=== PATIENT | female | born 1965 | race Caucasian/White ===

== ENCOUNTER 2016-05-19 07:40 | Emergency (ER) | payer OTHER, SELFPAY ==
[2016-05-19] MEDS ORDERED: Ketorolac Tromethamine 30 MG/ML VIAL ONE (08:09)
[2016-05-19] MEDS ORDERED: Ondansetron HCl/PF 4 MG/2 ML Vial ONE (08:09)
[2016-05-19] MEDS ORDERED: Sodium Chloride 0.9% 1,000 ML ONE (08:09)
[2016-05-19 08:23] LABS: Bilirubin Negative (Negative); Blood, Urine Moderate (Negative); Glucose, Urine (Dipstick) Negative (Negative); Ketone, Urine Negative (Negative); Nitrite Negative (Negative); Protein, Urine (Dipstick) 30 mg/dL (Neg-Trace); Urobilinogen 0.2 mg/dL (0.2-1.0)
[2016-05-19 08:24] LABS: #Basophils 0.1 thou/uL (0.0-0.2); #Eosinphils 0.1 thou/uL (0.0-0.7); #Lymphocytes 1.5 thou/uL (1.20-3.40); #Monocytes 0.3 thou/uL (0.11-0.59); #Neutrophils 6.4 thou/uL (1.40-6.50); %Basophils 0.7 % (0.0-1.0); %Eosinophils 1.6 % (0.0-10.0); %Lymphocytes 17.7 % (21.0-51.0); %Monocytes 3.4 % (0.0-10.0); Hematocrit 41.5 % (36.0-47.0); Mean Platelet Volume 6.2 fL (7.4-10.4); Red Blood Cell (RBC) Count 4.82 mill/uL (4.20-5.40); White Blood Cell (WBC) Count 8.3 thou/uL (4.8-10.8)
[2016-05-19 08:25] LABS: Bacteria/HPF None Seen HPF (None Seen); RBC/HPF 0-3 HPF (0-3); Squamous Epithelial 0-3 HPF (0-3); WBC/HPF 0-3 HPF (0-3)
[2016-05-19 08:30] LABS: ALT (SGPT) 21 U/L (0-55); AST (SGOT) 22 U/L (5-34); Alkaline Phosphatase 106 U/L (40-150); Anion Gap 16 mmol/L (10-20); BUN (Urea Nitrogen) 23 mg/dL (7.0-18.7); Bilirubin, Total 0.4 mg/dL (0.2-1.2); Calc. Creatinine Clearance 0 mL/min (70-130); Calcium 9.4 mg/dL (7.8-10.44); Carbon Dioxide 21 mmol/L (22-29); Chloride 108 mmol/L (98-107); Estimated GFR-MDRD 72; Globulin 3.1 g/dL (2.4-3.5); Protein, Total 7.6 g/dL (6.0-8.3)
[2016-05-19] MEDS ORDERED: Levofloxacin 500 mg/D5W 100 ml Premix Bag ONE (09:14)
--- NOTE | 2016-05-19 09:21 | CT ---
CT OF THE ABDOMEN AND PELVIS WITH IV CONTRAST: Date: 05/19/16 INDICATION: Left lower quadrant abdominal pain since 0500 hours. FINDINGS: There is a 5.6 mm calculus involving the inferior pole of the left kidney. There is slight prominenc e of the left renal pelvis with periureteral inflammatory stranding involving the proximal left uret er. No jose a hydronephrosis is evident. There is a 3.6 mm stone at the left UVJ. Additionally, there is wall thickening with pericolonic inflammatory stranding and scattered diverti cula involving the proximal sigmoid colon and distal descending colon suspicious for diverticulitis. There is a normal appendix in the right lower quadrant. No drainable fluid collection is evident. Unopacified liver, spleen, pancreas, adrenal glands, and right kidney are unremarkable. No free flui d is noted. No acute osseous abnormality is evident. IMPRESSION: 1. Left UVJ calculus without appreciable hydronephrosis. There is some mild periureteral inflammato ry stranding involving the proximal aspect of the left ureter with slight prominence of the left derek al pelvis. 2. Left nephrolithiasis. 3. Wall thickening with scattered diverticula and pericolonic inflammatory stranding involving the proximal sigmoid colon and distal descending colon, suspicious for noncomplicated acute appendicitis . No drainable fluid collection is evident. POS: RINA
--- NOTE | 2016-05-19 10:37 | ERRECORD ---
[facility] EMERGENCY RECORD HPI ABDOMINAL PAIN (08:09 AGRE) CHIEF COMPLAINTS: Patient presents for evaluation of abdominal pain. HISTORIAN: History provided by patient, SUDDEN ONSET OF SEVERE LLQ ABDOMINAL PAIN THIS MORNING WHICH IS SHARP AND PERSISTENT. UNABLE TO PASS URINE, VOMITING. NO FEVER, DIARRHEA, CONSTIPATION, VAGINAL DISCHARGE. DENIES HX OF KIDNEY STONES OR GALLSTONES. NO FEVER OR CHILLS. NO VOMITING BLOOD. NOTED BLOOD IN HER URINE YESTERDAY. LOCATION FEMALE: Symptoms are localized, most severe in the left lower quadrant. QUALITY: Pain is sharp in nature, described as shooting, described as stabbing. SEVERITY: Maximum severity of symptoms severe, Currently symptoms are severe. TIME COURSE: Sudden onset of symptoms. ASSOCIATED WITH FEMALE: No associated flank pain, Associated with groin pain, Associated with urinary tract infection signs or symptoms, Associated with vomiting, No associated vaginal discharge, No associated vaginal bleeding. MODIFYING FACTORS FEMALE: Patient menopausal. RELIEVED BY: Patient's condition relieved by nothing. EXACERBATED BY: Patient's condition exacerbated by nothing. ROS (08:11 AGRE) CONSTITUTIONAL: Historian denies chills, denies fever, denies weakness. EYES: Historian denies eye redness, denies vision changes. ENT: Historian denies sore throat, denies stridor. CARDIOVASCULAR: Historian denies chest pain, denies diaphoresis. RESPIRATORY: Historian denies cough, denies shortness of breath. GI: Historian reports abdominal pain, reports nausea, reports vomiting. MUSCULOSKELETAL: Historian denies back pain, denies neck pain. SKIN: Historian denies skin changes, denies skin lesions. NEUROLOGIC: Historian denies confusion, denies dizziness, denies focal weakness, denies headache. HEMO/LYMPHATIC: Normal hematologic/lymphatic system review, Historian denies petechiae. PSYCHIATRIC: Negative psychiatric review of systems, Historian denies anxiety. PAST MEDICAL HISTORY (07:54 EPIE) MEDICAL HISTORY: Flu vaccine not up to date, Tetanus immunization up to date, Date of immunization: 2011, Pneumococcal vaccine not up to date, Past medical history includes endocrine disease, hypothyroidism. FEMALE SURGICAL HISTORY: Patient has no surgical history. PSYCHIATRIC HISTORY: No previous psychiatric history. SOCIAL HISTORY: Patient drinks socially, twice a month, Patient denies drug use, Patient has no smoking history. &a-1R&a+25V*p+0X*[id number]*c202B*c15G*c2P*p-0X&a-25V&a+1R Name: Geovanni Armenta : 1965 F50 MedRec: [id number] AcctNum: [id number] Prepared: WedMay 19, 2016 10:34 by Interface Page 1 of 4 pMD [facility] EMERGENCY RECORD KNOWN ALLERGIES No Known Drug Allergies CURRENT MEDICATIONS (07:53 EPIE) [place] Thyroid: TABLET : Strength - 15 mg : ORAL Patient Dose: UNK mg Oral once a day (in the morning). VITAL SIGNS VITAL SIGNS: BP: 144/77, Pulse: 80, Resp: 20, Temp: 97.9 (Oral), Pain: 8, O2 sat: 100 on Room Air, Time: 05/19/2016 07:54. (07:54 EPIE) BP: 106/67, Pulse: 84, Resp: 18 (Non-Labored), Pain: 2, O2 sat: 100 on Room Air, Time: 05/19/2016 08:59. (08:59 EPIE) PHYSICAL EXAM (08:12 AGRE) CONSTITUTIONAL: Patient appears, in severe pain distress, Vital Signs Reviewed, Patient afebrile, Patient appears non toxic, Patient alert and oriented to person, place and time, Nursing notes reviewed. HEAD: Head exam included findings of head atraumatic, normocephalic. EYES: Eye exam included findings of eyelids normal to inspection, Extraocular muscles intact, Conjunctiva normal, Sclera normal. ENT: Ear exam normal, Nose exam normal, Mouth exam normal. NECK: Neck exam normal, Neck exam included findings of normal range of motion, no meningeal signs. RESPIRATORY CHEST: Respiratory and chest exam normal, Respiratory exam included findings of no respiratory distress, Breath sounds clear, No wheezing, No rales, No rhonchi, Breath sounds not diminished. CARDIOVASCULAR: Cardiovascular assessment normal, Cardiovascular exam included findings of heart rate regular rate and rhythm, Heart sounds normal, normal S1, normal S2, no murmurs, no rub, no gallop. ABDOMEN FEMALE: Abdominal exam included findings of abdomen tender, to the left lower quadrant, Bowel sounds normal, Liver normal, Spleen normal, no distension, no mass, no pulsatile masses, no peritoneal signs, no rigidity, no guarding, no rebound. BACK: Back exam included findings of normal inspection, range of motion normal, no costovertebral angle tenderness. UPPER EXTREMITY: Upper extremity exam included findings of inspection normal, Range of motion normal. LOWER EXTREMITY: Lower extremity exam included findings of inspection normal, Range of motion normal. NEURO: Neuro exam normal, Neuro exam findings include patient oriented to person, place and time, Speech normal, Memory normal, Cranial nerves intact, no focal motor deficits. SKIN: Skin exam included findings of skin warm, dry, and normal in color. &a-1R&a+25V*p+0X*[id number]*c202B*c15G*c2P*p-0X&a-25V&a+1R Name: Geovanni Armenta : 1965 F50 MedRec: [id number] AcctNum: [id number] Prepared: WedMay 19, 2016 10:34 by Interface Page 2 of 4 pMD [facility] EMERGENCY RECORD PSYCHIATRIC: Psychiatric exam normal, Normal affect. 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 MEDICATION ADMINISTRATION SUMMARY Drug Name: Levaquin in 5 % dextrose, Dose Ordered: 500 mg, Route: IV Piggy Back, Status: Given, Time: 09:23 05/19/2016, Drug Name: ketorolac injection, Dose Ordered: 30 mg, Route: IV Push, Status: Given, Time: 08:20 05/19/2016, Drug Name: ondansetron HCl intravenous, Dose Ordered: 4 mg, Route: IV Push, Status: Given, Time: 08:16 05/19/2016, Drug Name: sodium chloride 0.9 % intravenous, Dose Ordered: 1 L, Route: IV Fluid Infusion, Status: Given, Time: 08:15 05/19/2016, Detailed record available in Medication Service section. DOCTOR NOTES TEXT: VS STABLE AND SHE REPORTS FEELING MUCH BETTER. PAIN GONE. (09:54 AGRE) PATIENT HAS REMAINED COMFORTABLE AND PAIN FREE WITH STABLE VS. DISCUSSED WITH HER AND FAMILY THE FINDINGS ON EXAM, RESULTS OF THE ED TEST, THAT IT APPEARS SHE MAY HAVE DIVERTICULITIS WELL. DISCUSSED MANAGEMENT OF HER SYMPTOMS, ANTIBIOTICS FOR POSSIBLE DIVERTICULITIS, NEED FOR CLOSE FOLLOW UP. THEY EXPRESSED UNDERSTANDING AND AGREEMENT. (10:15 AGRE) PATIENT STATUS: Patient has improved since arrival to emergency department. (10:15 AGRE) PATIENT PLAN: The patient will be discharged. (10:15 AGRE) DATA REVIEWED: Lab data reviewed, Xray data reviewed, Discussed with family. (10:15 AGRE) PROBLEM LIST No recorded problems DIAGNOSIS (10:11 AGRE) FINAL: PRIMARY: UNSPECIFIED RENAL COLIC, ADDITIONAL: Kidney stone, POSSIBLE DIVERTICULITIS. PRESCRIPTION (10:11 AGRE) acetaminophen-codeine: TABLET : 300 mg-60 mg : ORAL : Quantity: 1 Unit: tab(s) Route: ORAL Schedule: every 6 hours PRN Dispense: 20 Unit: tab(s) May substitute. Refills: No Refills . NOTES: prn severe pain No Refills. Cipro tablet: TABLET : 500 mg : ORAL : Quantity: 1 Unit: tab(s) Route: ORAL Schedule: 2 times a day (before meals) Dispense: &a-1R&a+25V*p+0X*[id number]*c202B*c15G*c2P*p-0X&a-25V&a+1R Name: Geovanni Armenta : 1965 F50 MedRec: [id number] AcctNum: [id number] Prepared: WedMay 19, 2016 10:34 by Interface Page 3 of 4 pMD [facility] EMERGENCY RECORD 14 May substitute. Refills: No Refills . NOTES: No Refills. Flagyl: TABLET : 500 mg : ORAL : Quantity: 1 Unit: tab(s) Route: ORAL Schedule: every 8 hours Dispense: 21 May substitute. Refills: No Refills . NOTES: ^s=No Refills No Refills. DISPOSITION PATIENT: Disposition Type: Discharge, Disposition: *Discharge Home, Condition: Improved. (10:11 AGRE) Patient left the department. (10:32 EPIE) [place]: ANKIT=MD Keita Andrea EPIE=CARLA Chatterjee, Latha &a-1R&a+25V*p+0X*[id number]*c202B*c15G*c2P*p-0X&a-25V&a+1R Name: Gevoany Geovanni M : 1965 F50 MedRec: [id number] AcctNum: [id number] Prepared: Merle May 19, 2016 10:34 by Interface Page 4 of 4 pMD MTDD
--- NOTE | 2016-05-19 10:41 | PICIS ---
[facility] EMERGENCY RECORD TRIAGE (WedMay 19, 2016 07:52 EPIE) TRIAGE NOTES: Pt reports vomiting 4-6 times this morning since 0600. Reports left lower abdominal pain. (WedMay 19, 2016 07:52 EPIE) PATIENT: NAME: Geovanni Armenta, AGE: 50, GENDER: female, : Wed1965, TIME OF GREET: WedMay 19, 2016 07:41, PREFERRED LANGUAGE: Italian, ETHNICITY: Not or , ECODE BILLING MAP: [facility], SSN: [id number], Zip Code: [address], KG WEIGHT: 72.57, PHONE: , , , PERSON ID: [id number], PCP: Luzma GOODMAN C. HENRY. (WedMay 19, 2016 07:52 EPIE) COMPLAINT: LEFT SIDE PAIN,VOMITING. (WedMay 19, 2016 07:52 EPIE) ADMISSION: URGENCY: 3 Urgent, ADMISSION SOURCE: Home, TRANSPORT: CAR, BED: TRIAGE. (WedMay 19, 2016 07:52 EPIE) TRIAGE SCREENING: Patient denies suicidal ideation, Patient denies presence of domestic violence. (07:54 EPIE) TREATMENTS IN PROGRESS: Treatments given Prehospital: aspirin. (07:54 EPIE) PROVIDERS: TRIAGE NURSE: Latha Chatterjee RN. (WedMay 19, 2016 07:52 EPIE) PREVIOUS VISIT ALLERGIES: No Known Drug Allergies. (WedMay 19, 2016 07:52 EPIE) No Known Drug Allergies. (07:54 EPIE) KNOWN ALLERGIES No Known Drug Allergies CURRENT MEDICATIONS (07:53 EPIE) [place] Thyroid: TABLET : Strength - 15 mg : ORAL Patient Dose: UNK mg Oral once a day (in the morning). VITAL SIGNS VITAL SIGNS: BP: 144/77, Pulse: 80, Resp: 20, Temp: 97.9 (Oral), Pain: 8, O2 sat: 100 on Room Air, Time: 05/19/2016 07:54. (07:54 EPIE) BP: 106/67, Pulse: 84, Resp: 18 (Non-Labored), Pain: 2, O2 sat: 100 on Room Air, Time: 05/19/2016 08:59. (08:59 EPIE) NURSING ASSESSMENT: ABDOMEN (08:22 EPIE) CONSTITUTIONAL: Patient arrives, via hospital wheelchair, Unsteady gait, Assistance to cart, History obtained from patient, Patient appears, uncomfortable, Patient cooperative, Patient alert, Oriented to person, place and time, Skin warm, Skin dry, Skin normal in color, Mucous membranes pink, Mucous membranes, dry, Patient is well-groomed, Pt reports vomiting 4-6 times this morning since 0600. Reports left lower abdominal pain. PAIN: aching pain, to the left lower quadrant, Onset of pain 05/19/2016 0600, &a-1R&a+25V*p+0X*[id number]*c202B*c15G*c2P*p-0X&a-25V&a+1R Name: Geovanni Armenta : 1965 F50 MedRec: [id number] AcctNum: [id number] Prepared: Merle May 19, 2016 10:41 by Interface Page [address] [facility] EMERGENCY RECORD constant, on a scale 0-10 patient rates pain as 8. ABDOMEN: Abdomen assessment findings include abdomen symmetrical, Abdomen soft, tender, to the left lower quadrant, Associated with nausea, Associated with vomiting, no associated diarrhea. LMP: Last menstrual period not applicable due to menopause. GENITOURINARY FEMALE: Associated with urinary complaints, dribbling, frequency. NURSING PROCEDURE: IV (08:14 EPIE) PATIENT IDENITIFIER: Patient actively involved in identification process, Patient's identity verified by patient stating name, Patient's identity verified by hospital ID bracelet. IV SITE 1: IV established, to the right antecubital, using a 20 gauge catheter, in one attempt, IV site prepped with chloroprep, Saline lock established, Flushed with normal saline (mls): 10, Labs drawn at time of placement, labeled in the presence of the patient and sent to lab. FOLLOW-UP SITE 1: After procedure, no drainage at IV site, After procedure, no swelling at IV site, After procedure, no redness at IV site. NURSING PROCEDURE: NURSE NOTES NURSES NOTES: Notes: Patient resting with family at bedside. RR even and unlabored. No new complaints at this time. IV fluids infusing. Awaiting lab and CT results. Warm blankets given for comfort. (08:24 EPIE) Notes: Patient resting with family at bedside. RR even and unlabored. No new complaints at this time. Pt reports pain has decreased to a 2/10. (09:00 EPIE) NURSING PROCEDURE: URINE COLLECTION (08:22 EPIE) PATIENT IDENTIFIER: Patient actively involved in identification process, Patient's identity verified by patient stating name, Patient's identity verified by hospital ID bracelet. URINE COLLECTION FEMALE: Urine collected by void, output amount (mL) 0.5, urine yellow in color, and clear, Specimen labeled in the presence of the patient and sent to lab. ORDER DETAILS Order Name: CBC with Differential, Status: Active, Time: 07:58 05/19/2016, User: ANKIT, - Ordered for: MD Keita Andrea, - Entered by: MD Keita Andrea - Tue May 19, 2016 07:58, - Quantity: 1, Order Name: Comprehensive Metabolic Panel, Status: Active, Time: 07:58 05/19/2016, User: ANKIT, - Ordered for: MD Keita Andrea, &a-1R&a+25V*p+0X*y6147E*c202B*c15G*c2P*p-0X&a-25V&a+1R Name: Geovanni Armenta Sybil : 1965 F50 MedRec: [id number] AcctNum: [id number] Prepared: WedMay 19, 2016 10:41 by Interface Page [address] [facility] EMERGENCY RECORD - Entered by: MD Keita Andrea - Tue May 19, 2016 07:58, - Quantity: 1, Order Name: CT Abdomen Pelvis W Con, Status: Canceled, Time: 08:49 05/19/2016, User: Sonia, - Ordered for: MD Keita Andrea, - Entered by: MD Keita Andrea - Tue May 19, 2016 08:13, - Quantity: 1, Order Name: CT Abdomen Pelvis WO Con, Status: Active, Time: 08:20 05/19/2016, User: ANKIT, - Ordered for: MD Keita Andrea, - Entered by: MD Keita Andrea - jannie May 19, 2016 08:20, - Quantity: 1, Order Name: Culture, Urine, Status: Active, Time: 07:58 05/19/2016, User: ANKIT, - Ordered for: MD Keita Andrea, - Entered by: MD Keita Andrea - jannie May 19, 2016 07:58, - Quantity: 1, Order Name: SALINE LOCK, Status: Done, Time: 08:06 05/19/2016, User: EMELINA, - Ordered for: MD Keita Andrea, - Entered by: MD Keita Andrea - jannie May 19, 2016 07:58, - Quantity: 1, Order Name: Urinalysis w/ Rflx Microscopic, Status: Active, Time: 07:58 05/19/2016, User: ANKIT, - Ordered for: MD Keita Andrea, - Entered by: MD Keita Andrea - jannie May 19, 2016 07:58, - Quantity: 1. MEDICATION ADMINISTRATION SUMMARY Drug Name: Levaquin in 5 % dextrose, Dose Ordered: 500 mg, Route: IV Piggy Back, Status: Given, Time: 09:23 05/19/2016, Drug Name: ketorolac injection, Dose Ordered: 30 mg, Route: IV Push, Status: Given, Time: 08:20 05/19/2016, Drug Name: ondansetron HCl intravenous, Dose Ordered: 4 mg, Route: IV Push, Status: Given, Time: 08:16 05/19/2016, Drug Name: sodium chloride 0.9 % intravenous, Dose Ordered: 1 L, Route: IV Fluid Infusion, Status: Given, Time: 08:15 05/19/2016, Detailed record available in Medication Service section. MEDICATION SERVICE ketorolac injection: Order: ketorolac injection (ketorolac tromethamine) - Dose: 30 mg : IV Push Ordered by: Jose Miguel Keita MD Entered by: Jose Miguel Keita MD WedMay 19, 2016 08:09 , Acknowledged by: Latha Chatterjee RN WedMay 19, 2016 08:09 Documented as given by: Latha Chatterjee RN WedMay 19, 2016 08:20 Patient, Medication, Dose, Route and Time verified prior to administration. Amount given: 30mg, IV SITE #1 IVP, initial medication, Slowly, &a-1R&a+25V*p+0X*n0228L*c202B*c15G*c2P*p-0X&a-25V&a+1R Name: Geovanni Armenta : 1965 F50 MedRec: [id number] AcctNum: [id number] Prepared: WedMay 19, 2016 10:41 by Interface Page [address] [facility] EMERGENCY RECORD Catheter placement confirmed via flush prior to administration, IV site without signs or symptoms of infiltration during medication administration, No swelling during administration, No drainage during administration, IV flushed after administration, Correct patient, time, route, dose and medication confirmed prior to administration, Patient advised of actions and side-effects prior to administration, Allergies confirmed and medications reviewed prior to administration. Levaquin in 5 % dextrose: Order: Levaquin in 5 % dextrose (levofloxacin/dextrose 5 % in water) - Dose: 500 mg : IV Piggy Back Ordered by: Jose Miguel Keita MD Entered by: Jose Miguel Keita MD WedMay 19, 2016 09:12 , Acknowledged by: Latha Chatterjee RN WedMay 19, 2016 09:13 Documented as given by: Latha Chatterjee RN WedMay 19, 2016 09:23 Patient, Medication, Dose, Route and Time verified prior to administration. Amount given: 500mg, IV SITE #1 IVPB or drip, initial infusion, Premixed, via primary tubing, on an IV pump, at 100 ml/hr, Catheter placement confirmed via flush prior to administration, IV site without signs or symptoms of infiltration during medication administration, No swelling during administration, No drainage during administration, IV flushed after administration, Correct patient, time, route, dose and medication confirmed prior to administration, Patient advised of actions and side-effects prior to administration, Allergies confirmed and medications reviewed prior to administration. : Follow Up : Response assessment performed, No signs or symptoms of allergic reaction noted, _IV SITE #1:_, Medication infusion discontinued, on WedMay 19, 2016 10:30, Total infusion time IV site 1 1 hour, 10 minutes, ., Total amount infused: 100ml, IV Discontinued with catheter intact. (10:30 EPIE) ondansetron HCl intravenous: Order: ondansetron HCl intravenous (ondansetron HCl) - Dose: 4 mg : IV Push Ordered by: Jose Miguel Keita MD Entered by: Jose Miguel Keita MD WedMay 19, 2016 07:58 , Acknowledged by: Latha Chatterjee RN WedMay 19, 2016 08:08 Documented as given by: Latha Chatterjee RN WedMay 19, 2016 08:16 Patient, Medication, Dose, Route and Time verified prior to administration. Amount given: 4mg, IV SITE #1 IVP, initial medication, Slowly, Catheter placement confirmed via flush prior to administration, IV site without signs or symptoms of infiltration during medication administration, No swelling during administration, No drainage during administration, IV flushed after administration, Correct patient, time, route, dose and medication confirmed prior to administration, Patient advised of actions and side-effects prior to administration, Allergies confirmed and medications reviewed prior to administration. sodium chloride 0.9 % intravenous: Order: sodium chloride 0.9 % intravenous (0.9 % sodium chloride) - Dose: 1 L : IV Fluid Infusion Ordered by: Jose Miguel Keita MD &a-1R&a+25V*p+0X*f3620I*c202B*c15G*c2P*p-0X&a-25V&a+1R Name: Geovanni Armenta : 1965 F50 MedRec: [id number] AcctNum: [id number] Prepared: WedMay 19, 2016 10:41 by Interface Page [address] [facility] EMERGENCY RECORD Entered by: Jose Miguel Keita MD WedMay 19, 2016 07:58 , Acknowledged by: Latha Chatterjee RN WedMay 19, 2016 08:08 Documented as given by: Latha Chatterjee RN WedMay 19, 2016 08:15 Patient, Medication, Dose, Route and Time verified prior to administration. Amount given: 1L, IV SITE #1 IV fluids established for hydration, IV SITE #1 into right antecubital, IV SITE #1 1st bag hung, amount 1 Liter hung, IV SITE #1 bolus of 1000 ml established, via primary tubing, Catheter placement confirmed via flush prior to administration, IV site without signs or symptoms of infiltration during medication administration, No swelling during administration, No drainage during administration, IV flushed after administration, Correct patient, time, route, dose and medication confirmed prior to administration, Patient advised of actions and side-effects prior to administration, Allergies confirmed and medications reviewed prior to administration. : Follow Up : Response assessment performed, No signs or symptoms of allergic reaction noted, _IV SITE #1:_, IV fluid infusion discontinued, on WedMay 19, 2016 10:05, Total fluid hydration time IV site 1 1 hour, 50 minutes, ., Total amount infused: 1000ml, IV Line flushed after administration. (10:05 EPIE) HPI ABDOMINAL PAIN (08:09 AGRE) CHIEF COMPLAINTS: Patient presents for evaluation of abdominal pain. HISTORIAN: History provided by patient, SUDDEN ONSET OF SEVERE LLQ ABDOMINAL PAIN THIS MORNING WHICH IS SHARP AND PERSISTENT. UNABLE TO PASS URINE, VOMITING. NO FEVER, DIARRHEA, CONSTIPATION, VAGINAL DISCHARGE. DENIES HX OF KIDNEY STONES OR GALLSTONES. NO FEVER OR CHILLS. NO VOMITING BLOOD. NOTED BLOOD IN HER URINE YESTERDAY. LOCATION FEMALE: Symptoms are localized, most severe in the left lower quadrant. QUALITY: Pain is sharp in nature, described as shooting, described as stabbing. SEVERITY: Maximum severity of symptoms severe, Currently symptoms are severe. TIME COURSE: Sudden onset of symptoms. ASSOCIATED WITH FEMALE: No associated flank pain, Associated with groin pain, Associated with urinary tract infection signs or symptoms, Associated with vomiting, No associated vaginal discharge, No associated vaginal bleeding. MODIFYING FACTORS FEMALE: Patient menopausal. RELIEVED BY: Patient's condition relieved by nothing. EXACERBATED BY: Patient's condition exacerbated by nothing. ROS (08:11 AGRE) CONSTITUTIONAL: Historian denies chills, denies fever, denies weakness. EYES: Historian denies eye redness, denies vision changes. ENT: Historian denies sore throat, denies stridor. CARDIOVASCULAR: Historian denies chest pain, denies diaphoresis. &a-1R&a+25V*p+0X*r2696U*c202B*c15G*c2P*p-0X&a-25V&a+1R Name: Geovanni Armenta : 1965 F50 MedRec: [id number] AcctNum: [id number] Prepared: Tue May 19, 2016 10:41 by Interface Page [address] [facility] EMERGENCY RECORD RESPIRATORY: Historian denies cough, denies shortness of breath. GI: Historian reports abdominal pain, reports nausea, reports vomiting. MUSCULOSKELETAL: Historian denies back pain, denies neck pain. SKIN: Historian denies skin changes, denies skin lesions. NEUROLOGIC: Historian denies confusion, denies dizziness, denies focal weakness, denies headache. HEMO/LYMPHATIC: Normal hematologic/lymphatic system review, Historian denies petechiae. PSYCHIATRIC: Negative psychiatric review of systems, Historian denies anxiety. PAST MEDICAL HISTORY (07:54 EPIE) MEDICAL HISTORY: Flu vaccine not up to date, Tetanus immunization up to date, Date of immunization: 2011, Pneumococcal vaccine not up to date, Past medical history includes endocrine disease, hypothyroidism. FEMALE SURGICAL HISTORY: Patient has no surgical history. PSYCHIATRIC HISTORY: No previous psychiatric history. SOCIAL HISTORY: Patient drinks socially, twice a month, Patient denies drug use, Patient has no smoking history. PHYSICAL EXAM (08:12 AGRE) CONSTITUTIONAL: Patient appears, in severe pain distress, Vital Signs Reviewed, Patient afebrile, Patient appears non toxic, Patient alert and oriented to person, place and time, Nursing notes reviewed. HEAD: Head exam included findings of head atraumatic, normocephalic. EYES: Eye exam included findings of eyelids normal to inspection, Extraocular muscles intact, Conjunctiva normal, Sclera normal. ENT: Ear exam normal, Nose exam normal, Mouth exam normal. NECK: Neck exam normal, Neck exam included findings of normal range of motion, no meningeal signs. RESPIRATORY CHEST: Respiratory and chest exam normal, Respiratory exam included findings of no respiratory distress, Breath sounds clear, No wheezing, No rales, No rhonchi, Breath sounds not diminished. CARDIOVASCULAR: Cardiovascular assessment normal, Cardiovascular exam included findings of heart rate regular rate and rhythm, Heart sounds normal, normal S1, normal S2, no murmurs, no rub, no gallop. ABDOMEN FEMALE: Abdominal exam included findings of abdomen tender, to the left lower quadrant, Bowel sounds normal, Liver normal, Spleen normal, no distension, no mass, no pulsatile masses, no peritoneal signs, no rigidity, no guarding, no rebound. BACK: Back exam included findings of normal inspection, range of motion normal, no costovertebral angle tenderness. UPPER EXTREMITY: Upper extremity exam included findings of &a-1R&a+25V*p+0X*t3024W*c202B*c15G*c2P*p-0X&a-25V&a+1R Name: Geovanni Armenta : 1965 F50 MedRec: [id number] AcctNum: [id number] Prepared: WedMay 19, 2016 10:41 by Interface Page [address] [facility] EMERGENCY RECORD inspection normal, Range of motion normal. LOWER EXTREMITY: Lower extremity exam included findings of inspection normal, Range of motion normal. NEURO: Neuro exam normal, Neuro exam findings include patient oriented to person, place and time, Speech normal, Memory normal, Cranial nerves intact, no focal motor deficits. SKIN: Skin exam included findings of skin warm, dry, and normal in color. PSYCHIATRIC: Psychiatric exam normal, Normal affect. LAB INTERPRETATION (09:53 AGRE) INTERPRETATION: CBC normal, Chemistry abnormal, Chloride elevated, Glucose elevated, BUN elevated, Bicarbonate decreased, Urinalysis abnormal, positive for erythrocytes, positive for protein. EVENTS TRANSFER: Triage to Emergency Triage. (WedMay 19, 2016 07:52 EPIE) Emergency Triage to Emergency Room -03. (07:53 EPIE) Removed from Emergency Emergency Room -03. (10:32 EPIE) RADIOLOGYINTERPRETATION (09:10 AGRE) JANITOR CLEANER: Preliminary review of CT scans by, Radiologist, 3.6 STONE LEFT UVJ, MILD PERIURETERAL INFLAMMATORY CHANGES POSSIBLE DIVERTICULITIS,. O2SAT INTERPRETATION (10:15 AGRE) O2SAT: Continuous pulse oximetry, Oxygen saturation 100%, on room air, Oxygen saturation interpretation: Normal, No intervention required. DOCTOR NOTES TEXT: VS STABLE AND SHE REPORTS FEELING MUCH BETTER. PAIN GONE. (09:54 AGRE) PATIENT HAS REMAINED COMFORTABLE AND PAIN FREE WITH STABLE VS. DISCUSSED WITH HER AND FAMILY THE FINDINGS ON EXAM, RESULTS OF THE ED TEST, THAT IT APPEARS SHE MAY HAVE DIVERTICULITIS WELL. DISCUSSED MANAGEMENT OF HER SYMPTOMS, ANTIBIOTICS FOR POSSIBLE DIVERTICULITIS, NEED FOR CLOSE FOLLOW UP. THEY EXPRESSED UNDERSTANDING AND AGREEMENT. (10:15 AGRE) PATIENT STATUS: Patient has improved since arrival to emergency department. (10:15 AGRE) PATIENT PLAN: The patient will be discharged. (10:15 AGRE) DATA REVIEWED: Lab data reviewed, Xray data reviewed, Discussed with family. (10:15 AGRE) PROBLEM LIST No recorded problems &a-1R&a+25V*p+0X*r5964R*c202B*c15G*c2P*p-0X&a-25V&a+1R Name: Geovanni Armenta : 1965 F50 MedRec: [id number] AcctNum: [id number] Prepared: Merle May 19, 2016 10:41 by Interface Page [address] [facility] EMERGENCY RECORD DIAGNOSIS (10:11 AGRE) FINAL: PRIMARY: UNSPECIFIED RENAL COLIC, ADDITIONAL: Kidney stone, POSSIBLE DIVERTICULITIS. DISPOSITION PATIENT: Disposition Type: Discharge, Disposition: *Discharge Home, Condition: Improved. (10:11 AGRE) Patient left the department. (10:32 EPIE) INSTRUCTION (10:17 AGRE) DISCHARGE: DIVERTICULITIS, KIDNEY STONE W/ COLIC. FOLLOWUP: Luzam GOODMAN, Viola THOMPSON, [facility], [facility] [address] [facility] [id number], [phone]. SPECIAL: MAKE SURE TO DRINK LOTS OF WATER. IF YOU COLLECT THE KIDNEY STONE TAKE IT TO YOUR PHYSICIAN FOR ANALYSIS. FOLLOW UP WITH YOUR PRIMARY CARE PHYSICIAN THIS WEEK CONCERNING MANAGEMENT OF YOUR KIDNEY STONE AND DIVERTICULITIS. IN ADDITION TO THE PRESCRIPTION MEDICATIONS TAKE MOTRIN 600 MG EVERY 6 HOURS FOR INFLAMMATION. CALL YOUR PHYSICIAN TODAY TO ARRANGE A FOLLOW UP APPOINTMEN FOR THIS WEEK. DISCUSS WITH YOUR PHYSICIAN FOLLOW UP WITH A GI SPECIALIST. PRESCRIPTION (10:11 AGRE) acetaminophen-codeine: TABLET : 300 mg-60 mg : ORAL : Quantity: 1 Unit: tab(s) Route: ORAL Schedule: every 6 hours PRN Dispense: 20 Unit: tab(s) May substitute. Refills: No Refills . NOTES: prn severe pain No Refills. Cipro tablet: TABLET : 500 mg : ORAL : Quantity: 1 Unit: tab(s) Route: ORAL Schedule: 2 times a day (before meals) Dispense: 14 May substitute. Refills: No Refills . NOTES: No Refills. Flagyl: TABLET : 500 mg : ORAL : Quantity: 1 Unit: tab(s) Route: ORAL Schedule: every 8 hours Dispense: 21 May substitute. Refills: No Refills . NOTES: ^s=No Refills No Refills. ADMIN (10:18 AGRE) DIGITAL SIGNATURE: MD Keita Andrea. Davison: AGRE=MD Keita Andrea EPIE=Sen RN, Latha &a-1R&a+25V*p+0X*x6089W*c202B*c15G*c2P*p-0X&a-25V&a+1R Name: Geovanni Armenta : 1965 F50 MedRec: [id number] AcctNum: [id number] Prepared: Merle May 19, 2016 10:41 by Interface Page 8 of 8 pMD MTDD
== END 2016-05-19 10:30 | disposition home or self-care (01) ==
LOC: NAV ERS 07:40
DX: N20.0 Calculus of kidney (principal); E03.9 Hypothyroidism, unspecified
CPT/HCPCS: 36415; 74176; 80053; 81003; 81015; 85025; 87086; 96361; 96365; 96375; J1885; J1956; J2405; J7050

== ENCOUNTER 2016-06-19 14:34 | Emergency (ER) | payer OTHER ==
[2016-06-19] MEDS ORDERED: Ketorolac Tromethamine 30 MG/ML VIAL ONE (16:17)
--- NOTE | 2016-06-19 18:05 | CT ---
CT OF THE ABDOMEN AND PELVIS: Date: 06/19/16 PROVIDED CLINICAL HISTORY: Left lower quadrant pain. FINDINGS: The visualized lung bases are free of significant opacity. Pectus excavatum changes are seen. The liver, spleen, pancreas, right kidney, and adrenal glands appear unremarkable. There is asymmetric diminished excretion of contrast material into a mildly dilated left renal colle cting system and mildly dilated left ureter. There is a 3-4 mm left UVJ calculus. There is mildly di minished enhancement to the left kidney as compared to the right. There is no bowel dilatation, free fluid, or free air apparent. There are numerous descending coloni c and sigmoid colonic diverticula. There are minimal fat stranding changes adjacent to the mid desce nding colon. The osseous structures demonstrate no concerning osteoblastic or osteolytic lesions. IMPRESSION: 1. Obstructing 3-4 mm left UVJ calculus. 2. Colonic diverticulosis and subtle fat stranding changes involving the descending colon which may reflect associated mild uncomplicated diverticulitis. POS: RINA
== END 2016-06-19 19:06 | disposition home or self-care (01) ==
LOC: NAV ERS 14:34
DX: N20.0 Calculus of kidney (principal); K57.92 Diverticulitis of intestine, part unspecified, without perforation or abscess without bleeding; E03.9 Hypothyroidism, unspecified; Z79.899 Other long term (current) drug therapy
CPT/HCPCS: 74177; 96374; 96375; J1885; J2270

== ENCOUNTER 2016-10-14 03:19 | Emergency (ER) | payer OTHER ==
[2016-10-14 03:57] LABS: Blood, Urine Large (Negative); Clarity Cloudy (Clear); Glucose, Urine (Dipstick) Negative (Negative); Leukocyte Moderate (Negative); Nitrite Positive (Negative); Protein, Urine (Dipstick) 100 mg/dL (Neg-Trace); Urobilinogen 0.2 mg/dL (0.2-1.0); pH, Urine 5.5 (5.0-9.0)
[2016-10-14 03:58] LABS: Bilirubin Negative (Negative); Specific Gravity, Urine 1.022 (1.002-1.036)
[2016-10-14 03:59] LABS: Icto Negative (Negative)
[2016-10-14 04:02] LABS: Bacteria/HPF Rare-Few HPF (None Seen); Squamous Epithelial None Seen HPF (0-3)
[2016-10-14 04:08] LABS: #Basophils 0.1 thou/uL (0.0-0.2); #Eosinphils 0.2 thou/uL (0.0-0.7); #Lymphocytes 1.6 thou/uL (1.20-3.40); #Monocytes 0.5 thou/uL (0.11-0.59); #Neutrophils 7.8 thou/uL (1.40-6.50); %Basophils 0.6 % (0.0-1.0); %Eosinophils 1.7 % (0.0-10.0); %Lymphocytes 15.7 % (21.0-51.0); %Monocytes 4.9 % (0.0-10.0); %Neutrophils 77.2 % (42.0-75.0); BHCG - Serum Negative (NEGATIVE); Hemoglobin 12.7 g/dL (12.0-16.0); Mean Corpuscular HGB CONC 32.1 g/dL (32.0-36.0); Mean Corpuscular Hemoglobin 27.1 pg (27.0-31.0); Mean Corpuscular Volume 84.3 fl (81.0-99.0); Mean Platelet Volume 6.2 fL (7.4-10.4); Platelet Count 274 thou/uL (130-400); Pregs Control Bar Appear? YES (CONTROL BAR); RBC Distribution Width 12.5 % (11.5-14.5); Red Blood Cell (RBC) Count 4.67 mill/uL (4.20-5.40); White Blood Cell (WBC) Count 10.1 thou/uL (4.8-10.8)
[2016-10-14] MEDS ORDERED: Ketorolac Tromethamine 30 MG/ML VIAL ONE (04:09)
[2016-10-14] MEDS ORDERED: Sodium Chloride 0.9% 1,000 ML ONE (04:09)
[2016-10-14 04:19] LABS: ALT (SGPT) 12 U/L (8-55); AST (SGOT) 16 U/L (5-34); Albumin 4.4 g/dL (3.5-5.0); Alkaline Phosphatase 105 U/L (40-150); Anion Gap 16 mmol/L (10-20); BUN (Urea Nitrogen) 20 mg/dL (9.8-20.1); Bilirubin, Total 0.3 mg/dL (0.2-1.2); Calc. Creatinine Clearance 0 mL/min (70-130); Calcium 9.4 mg/dL (7.8-10.44); Carbon Dioxide 23 mmol/L (22-29); Chloride 107 mmol/L (98-107); Estimated GFR-MDRD 81; Globulin 2.8 g/dL (2.4-3.5); Glucose 102 mg/dL (70-105); Potassium 3.8 mmol/L (3.5-5.1); Protein, Total 7.2 g/dL (6.0-8.3); Sodium 142 mmol/L (136-145)
[2016-10-14] MEDS ORDERED: Sodium Chloride 0.9% 100 ML ONE (04:45)
[2016-10-14] MEDS ORDERED: cefTRIAXone\\ROCEPHIN 2 GM VIAL ONE (04:45)
== END 2016-10-14 05:32 | disposition home or self-care (01) ==
LOC: NAV ERS 03:19
DX: N39.0 Urinary tract infection, site not specified (principal); E03.9 Hypothyroidism, unspecified; Z79.899 Other long term (current) drug therapy
CPT/HCPCS: 80053; 81003; 81015; 84703; 85025; 96374; 96375; J0696; J1885; J7050

== ENCOUNTER 2020-10-07 12:19 | Outpatient (CLI) | payer OTHER | END 2020-10-07 12:20 | disposition home or self-care (01) | LOC: NAV RAD 12:19 | PROVIDERS: ATTEND Family Medicine | DX: M25.571 Pain in right ankle and joints of right foot (principal) ==

== ENCOUNTER 2020-11-03 13:31 | Emergency (ER) | payer OTHER ==
[~2020-11-03 13:31] MED LIST: Iopamidol 370 76% 100 ML VIAL ONE
[2020-11-03 14:16] LABS: Bilirubin Negative (Negative); Blood, Urine Negative (Negative); Clarity Clear (Clear); Glucose, Urine (Dipstick) Negative (Negative); Ketone, Urine Negative (Negative); Leukocyte Negative (Negative); Nitrite Negative (Negative); Protein, Urine (Dipstick) Negative (Neg-Trace); Specific Gravity, Urine 1.025 (1.005-1.030); Urobilinogen 0.2 mg/dL (Less than 2); pH, Urine 6.5 (5.0-9.0)
[2020-11-03] MEDS ORDERED: Ondansetron PF 4 MG/2 ML Vial ONE (14:30)
[2020-11-03] MEDS ORDERED: Ketorolac Tromethamine 30 MG/ML VIAL ONE (14:30)
[2020-11-03 14:48] LABS: #Eosinphils 0.1 thou/uL (0.0-0.7); #Lymphocytes 1.3 thou/uL (1.20-3.40); #Monocytes 0.6 thou/uL (0.11-0.59); #Neutrophils 10.6 thou/uL (1.40-6.50); %Basophils 0.4 % (0.0-1.0); %Eosinophils 0.6 % (0.0-10.0); %Monocytes 4.6 % (0.0-10.0); %Neutrophils 84.4 % (42.0-75.0); Hemoglobin 13.6 g/dL (12.0-16.0); Mean Corpuscular HGB CONC 30.3 g/dL (32.0-36.0); Mean Corpuscular Hemoglobin 27.1 pg (27.0-31.0); Mean Corpuscular Volume 89.4 fL (78.0-98.0); Mean Platelet Volume 6.4 fL (7.4-10.4); Platelet Count 272 thou/uL (130-400); Red Blood Cell (RBC) Count 5.03 mill/uL (4.20-5.40); White Blood Cell (WBC) Count 12.5 thou/uL (4.8-10.8)
[2020-11-03 14:55] LABS: ALT (SGPT) 14 U/L (8-55); AST (SGOT) 12 U/L (5-34); Albumin 4.3 g/dL (3.5-5.0); Alkaline Phosphatase 127 U/L (40-110); Anion Gap 14 mmol/L (10-20); BUN (Urea Nitrogen) 18 mg/dL (9.8-20.1); Bilirubin, Total 0.4 mg/dL (0.2-1.2); Calc. Creatinine Clearance 0 mL/min (70-130); Calcium 9.6 mg/dL (7.8-10.44); Carbon Dioxide 25 mmol/L (22-29); Chloride 104 mmol/L (98-107); Globulin 3.3 g/dL (2.4-3.5); Glucose 96 mg/dL (70-105); Lipase 26 U/L (8-78); Potassium 4.3 mmol/L (3.5-5.1); Protein, Total 7.6 g/dL (6.0-8.3); Sodium 139 mmol/L (136-145)
[2020-11-03] MEDS ORDERED: metroNIDAZOLE 500 MG TAB ONE (15:47)
[2020-11-03] MEDS ORDERED: Cipro 250 MG TAB ONE (15:47)
== END 2020-11-03 15:59 | disposition home or self-care (01) ==
LOC: NAV ERS 13:31
DX: K57.92 Diverticulitis of intestine, part unspecified, without perforation or abscess without bleeding (principal); D72.829 Elevated white blood cell count, unspecified; E03.9 Hypothyroidism, unspecified; Z79.899 Other long term (current) drug therapy
CPT/HCPCS: 74177; 80053; 81003; 83690; 85025; 96374; 96375; J1885; J2405; Q9967

== ENCOUNTER 2024-03-28 14:32 | Emergency (ER) | payer OTHER ==
[2024-03-28] MEDS ORDERED: Ibuprofen 200 MG TAB ONE (15:27)
== END 2024-03-28 16:00 | disposition home or self-care (01) ==
LOC: NAV ERS 14:32
DX: S20.212A Contusion of left front wall of thorax, initial encounter (principal); W01.10XA Fall on same level from slipping, tripping and stumbling with subsequent striking against unspecified object, initial encounter
CPT/HCPCS: 99284

== ENCOUNTER 2025-04-06 14:57 | Emergency (ER) | payer OTHER ==
[2025-04-06] MEDS ORDERED: Ibuprofen 800 MG TAB ONE (16:39)
[2025-04-06] MEDS ORDERED: HYDROcodone/Acetaminophen 5/325 mg Tablet ONE (16:40)
== END 2025-04-06 17:00 | disposition home or self-care (01) ==
LOC: NAV ERS 14:57
DX: S52.502A Unspecified fracture of the lower end of left radius, initial encounter for closed fracture (principal); S52.612A Displaced fracture of left ulna styloid process, initial encounter for closed fracture; W18.30XA Fall on same level, unspecified, initial encounter; Y93.01 Activity, walking, marching and hiking
CPT/HCPCS: 29105